=== PATIENT | female | born 1985 | race American Indian/Alaskan Native ===

== ENCOUNTER 2022-06-29 00:48 | Outpatient (CLI) | payer MEDICAID ==
[2022-06-29 01:03] VITALS: BP 112/69
[2022-06-29] MEDS ORDERED: LACTATED RINGERS 1,000 ML IV ONE (01:39)
[2022-06-29 01:48] LABS: Bilirubin,Urine NEG (Negative); Blood,Urine NEG (Negative); Color,Urine Straw (Yellow); Protein,Urine <15 mg/dL mg/dL (Negative)
[2022-06-29 01:53] LABS: Bacteria,Urine 1+ /HPF (Negative); Mucus,Urine FEW /HPF; WBC,Urine < 1.0 /HPF (0.0-6.0)
== END 2022-06-29 02:27 | disposition home or self-care (01) ==
LOC: TRG 00:48 → APU 00:57 → TRG 02:27
PROVIDERS: ATTEND Obstetrics & Gynecology
DX: O47.02 False labor before 37 completed weeks of gestation, second trimester (principal); Z3A.26 26 weeks gestation of pregnancy
CPT/HCPCS: 59025; 81001